=== PATIENT | female | born 1970 | race Caucasian/White ===

== ENCOUNTER 2018-08-17 07:48 | Emergency (ER) | payer MEDICAID ==
--- NOTE | 2018-08-17 08:30 | EDPHY ---
H & P Time Seen by Provider: 08/17/18 08:29 HPI/ROS: Chief complaint. Fall HPI. 48-year-old female had a fall last night when her wheelchair tipped over she injured her left shoulder. Did not strike her head or lose consciousness. Painful range of motion about the left shoulder. She is right handed. She has had pain in the right side of her back for 1 week. Worse after fall. Feels like previous kidney stone. No history of shoulder problems. No neck pain, chest pain, abdominal pain, shortness of breath. ROS 10 systems were reviewed and negative with the exception of the elements mentioned in the history of present illness Past Medical/Surgical History: Asthma Social History: Single, daily smoker, no alcohol Smoking Status: Current every day smoker Physical Exam: General Appearance: Alert well-developed female mild distress vital signs stable Eyes: Pupils equal and round no pallor or injection. ENT, Mouth: Mucous membranes are moist. Respiratory: There are no retractions, lungs are clear to auscultation. Cardiovascular: Regular rate and rhythm. Gastrointestinal: Abdomen is soft and nontender, no masses, bowel sounds normal. Neurological: Awake and alert, sensory and motor exams grossly normal. Skin: Warm and dry, no rashes. Musculoskeletal: Neck is supple nontender. No T, L, S spine. Patient has pain to the right flank at the T12-L1 junction. Extremities symmetrical, full range of motion. Left shoulder without obvious deformity or trauma. No scapular pain or clavicular pain. Diffuse pain anterior posterior left shoulder without to for Psychiatric: Patient is oriented X 3, there is no agitation. Constitutional: Initial Vital Signs Temperature (C) 36.7 C 08/17/18 07:52 Heart Rate 82 08/17/18 07:52 Respiratory Rate 20 08/17/18 07:52 Blood Pressure 158/89 H 08/17/18 07:52 O2 Sat (%) 97 08/17/18 07:52 O2 Delivery Mode Room Air Allergies/Adverse Reactions: iodine Allergy (Verified 08/17/18 07:51) Penicillins Allergy (Verified 08/17/18 07:50) Home Medications: Medication Instructions Recorded Advair 100/50 (*) 08/17/18 Cyclobenzaprine 08/17/18 Cymbalta 08/17/18 Lidocain/Me-Salicyl/Caps/Menth 1 each TP DAILY PRN #10 adh..patch 08/17/18 [1St Medx-Patch] Proair Hfa 08/17/18 traZODone 08/17/18 Medical Decision Making - Diagnostics Imaging Results: Imaging Impressions Shoulder X-Ray 08/17/18 07:56 Impression: No acute fracture or AC separation. Abdomen/Pelvis CT 08/17/18 08:40 Impression: 1. No intraabdominal mass, lymphadenopathy, or localized intraabdominal inflammatory process. No explanation for right-sided flank pain. 2. No acute fracture or evidence of solid organ injury. 3. No free fluid. Findings discussed with emergency department physician, Barber Barrett MD on August 17, 2018 at 9:17 a.m. Attention: This CT examination is specifically designed to evaluate patients who are clinically suspected of having acute obstructive uropathy. This examination does not use radiographic contrast, and as such, provides only a limited evaluation of the abdomen, pelvis, and retroperitoneum. If there is further clinical suspicion for pathological conditions other than obstructive uropathy, a complete CT evaluation of the abdomen and pelvis utilizing intravenous, oral, and rectal contrast should be considered. X-ray left shoulder interpreted by me is negative for fracture dislocation Noncontrast CT looking for kidney stone musculoskeletal is normal. Reviewed by me and discussed with Dr. Edge ED Course/Re-evaluation: Re-evaluation 9:50 a.m.. Patient is stable. Patient and I discussed imaging and lab results. We discussed treatment plan including criteria for return importance of follow-up and further evaluation. She expresses understanding and agreement. She feels she got good relief from lidocaine patch to the left shoulder Differential Diagnosis: I considered fracture, dislocation, kidney stone - Data Points Medications Given: Miscellaneous Information (Patch Removal) 1 ea TD DAILY21 SURINDER Stop: 02/13/19 20:59 Last Admin: 08/17/18 09:23 Dose: Not Given Discontinued Medications Acetaminophen (Tylenol) 1,000 mg PO EDNOW ONE Stop: 08/17/18 09:14 Last Admin: 08/17/18 09:22 Dose: 1,000 mg Ibuprofen (Motrin) 600 mg PO EDNOW ONE Stop: 08/17/18 09:14 Last Admin: 08/17/18 09:22 Dose: 600 mg Miscellaneous Medication (Icy Hot Lidocaine/Menthol 4%/1% Patch) 1 patch TD EDNOW ONE Stop: 08/17/18 09:14 Last Admin: 08/17/18 09:22 Dose: 1 patch Departure - Departure Disposition: Home, Routine, Self-Care Clinical Impression: Shoulder sprain Qualifiers: Encounter type: initial encounter Shoulder sprain type: unspecified sprain Laterality: left Qualified Code(s): S43.402A - Unspecified sprain of left shoulder joint, initial encounter Condition: Good Instructions: Shoulder Sprain (ED) Additional Instructions: Ice to sore area of shoulder and back next 24 hr Tylenol 1000 mg every 6 hr for discomfort Lidocaine patch to help with shoulder and back pain Return for worsening symptoms Recheck in 2-3 days for continuing symptoms Referrals: NONE *PRIMARY CARE P,. [Primary Care Provider] - As per Instructions [facility] [Cl[facility]] - 2-3 days, if not improved Prescriptions: Lidocain/Me-Salicyl/Caps/Menth [1St Medx-Patch] 1 each TP DAILY PRN #10 adh..patch PRN Reason: Pain, Moderate
[2018-08-17] MEDS ORDERED: ACETAMINOPHEN 500 MG TAB PO ONE (09:13)
[2018-08-17] MEDS ORDERED: LIDOCAINE 4%/MENTHOL 1% PATCH TD ONE (09:13)
[2018-08-17] MEDS ORDERED: IBUPROFEN 600 MG TAB PO ONE (09:13)
[2018-08-17 10:05] VITALS: BP 129/99
[2018-08-17] MEDS ORDERED: PATCH REMOVAL 1 EA PATCH TD SCH (21:00)
== END 2018-08-17 10:22 | disposition home or self-care (01) ==
DX: S43.402A Unspecified sprain of left shoulder joint, initial encounter (principal); W05.0XXA Fall from non-moving wheelchair, initial encounter; Y99.9 Unspecified external cause status
CPT/HCPCS: A4565